=== PATIENT | male | born 1975 | race Two or more races ===

== ENCOUNTER → 2021-11-08 14:52 | Outpatient (BNVA) | payer MEDICARE, MEDICAID, SELFPAY | PROVIDERS: PCP Family Medicine; Visit Provider Nurse Practitioner Family | DX: M96.1 Postlaminectomy syndrome, not elsewhere classified (principal); M54.16 Radiculopathy, lumbar region; G57.93 Unspecified mononeuropathy of bilateral lower limbs; G89.4 Chronic pain syndrome | CPT/HCPCS: 99202 ==

== ENCOUNTER → 2021-11-18 08:19 | Outpatient (BNVA) | payer MEDICARE, MEDICAID, SELFPAY | PROVIDERS: PCP Family Medicine; Visit Provider Nurse Practitioner Family | DX: M96.1 Postlaminectomy syndrome, not elsewhere classified (principal); M54.16 Radiculopathy, lumbar region; M53.3 Sacrococcygeal disorders, not elsewhere classified | CPT/HCPCS: 99212 ==

== ENCOUNTER 2022-06-29 10:03 | Outpatient (REF) | payer MEDICARE, MEDICAID, SELFPAY ==
--- NOTE | ~2022-06-29 | MR_ITS ---
EXAMINATION: MR LUMBAR SPINE WITHOUT AND WITH CONTRAST CLINICAL INFORMATION: Low back pain. History of prior surgeries. COMPARISON: None. TECHNIQUE: Multiplanar, multisequence imaging was obtained. Intravenous contrast: Gadavist 8.5 mL. FINDINGS: VERTEBRAL BODIES AND PARASPINAL STRUCTURES: The patient is status post previous posterior lumbar fusion with hardware instrumentation from the L4 through the S1 levels. An interbody prosthesis is also visible laterally on the left side in the L4-L5 disc space. Chronic postlaminectomy changes are present as well. The imaged bony pelvis appears normal. There are no compression fractures or subluxations. The marrow signal is homogeneous. Reduced intradiscal signal evident at the L3-L4 level without a loss of disc height. There is a mild rightward curvature of the lumbar spine. The paraspinal soft tissues are unremarkable CONUS MEDULLARIS AND CAUDA EQUINE: The distal cord, conus tip, and cauda equina nerve roots are normal. No pathologic enhancement is visible. SPINAL LEVELS: L1-L2: Well-hydrated normal appearance of the disc without central canal stenosis or foraminal narrowing. Mild facet arthropathy. L2-L3: Very mild disc bulge and mild to moderate facet arthropathy resulting in mild asymmetric narrowing of the left subarticular zone. Mild left foraminal narrowing as well. L3-L4: Reduced intradiscal signal and generalized disc bulge present with moderate facet arthropathy. Mild central canal stenosis evident. Bulging disc and osseous spurring result in moderate to severe bilateral foraminal narrowing. L4-L5: Postlaminectomy changes and hypertrophic facet arthropathy with fusion hardware in place. Moderate bilateral foraminal narrowing due to ossific spurring. Generalized underlying disc bulge noted. L5-S1: No disc pathology. Mild facet arthropathy. No central canal stenosis or foraminal narrowing. Posterior fusion hardware in place. MR/MR lumbar spine wo/w con IMPRESSION: 1. Status post posterior lumbar fusion with hardware instrumentation from the L4 through the S1 levels with an interbody prosthesis at the L4-L5 level. Moderate bilateral foraminal narrowing at the L4-L5 level. 2. Diffuse disc bulge and hypertrophic facet arthropathy at the L3-L4 junctional level with mild central canal stenosis and moderate to severe foraminal narrowing.
== END 2022-06-29 10:04 | disposition home or self-care (01) ==
LOC: HO.MRI 10:03
PROVIDERS: PCP Family Medicine; Visit Provider Family Medicine
DX: M54.16 Radiculopathy, lumbar region (principal); R20.0 Anesthesia of skin
CPT/HCPCS: 72158; A9585

== ENCOUNTER 2023-01-15 13:33 | Outpatient (REF) | payer MEDICARE, MEDICAID, SELFPAY ==
[2023-01-15 14:41] LABS: MANUAL DIFF FLAG NO
[2023-01-15 14:45] LABS: Basophils Percent Auto 0.4 % (0-2); Eosinophils Absolute Auto 0.3 X10*3/uL (0.0-0.4); Hematocrit 41.4 % (42.0-52.0); Hemoglobin 13.1 g/dl (14.0-18.0); Imm Gran Abs Auto 0.01 X10*3/uL (0.00-0.03); Imm Gran Pct Auto 0.2 % (0.0-0.4); Lymphocytes Absolute Auto 1.4 X10*3/uL (1.2-4.9); Lymphocytes Percent Auto 25.9 % (20-40); Mean Corpuscular HGB Conc 31.6 g/dl (31.0-36.0); Mean Corpuscular Hemoglobin 26.6 pg (27.0-33.0); Mean Platelet Volume 11.6 fL (9.4-12.4); Monocytes Absolute Auto 0.5 X10*3/uL (0.1-1.2); Monocytes Percent Auto 8.4 % (2-11); Neutrophils Absolute Auto 3.2 x10*3/uL (2.0-8.3); Neutrophils Percent Auto 59.1 % (45-73); Platelet Count 194 X10*3/uL (160-400); Red Blood Count 4.93 X10*6/uL (4.60-5.80); Red Cell Distribution Width 13.5 % (11.0-16.0); White Blood Count 5.4 X10*3/uL (4.8-10.8)
[2023-01-15 15:37] LABS: Alanine Aminotransferase 15 U/L (0-40); Albumin Level 4.4 g/dL (3.5-5.0); Alkaline Phosphatase 60 U/L (39-117); Anion Gap 10 (12-20); Aspartate Amino Transferase 17 U/L (5-37); Bilirubin Total 0.7 mg/dL (0.0-1.0); Blood Urea Nitrogen 15 mg/dL (9-16); Calcium 9.4 mg/dL (8.4-10.2); Carbon Dioxide 30 mmol/L (22-29); Chloride 105 mmol/L (96-108); Cholesterol 155 mg/dL (<200); Estimated Glomerular Filt Rate > 60; Glucose Random 92 mg/dL (60-115); HDL Cholesterol 27 mg/dL (>40); LDL Cholesterol Calculated 101 mg/dL (<100); Potassium 3.9 mmol/L (3.3-5.1); Sodium 141 mmol/L (135-145); Total Protein 7.3 g/dL (6.5-8.0); Triglycerides 139 mg/dL (<150)
[2023-01-16 04:23] LABS: HIV AB/AG Nonreactive (Nonreactive); HIV Num 1 0.05 S/CO (0.00-0.99); ~Hepatitis C Antibody Nonreactive (Nonreactive)
== END 2023-01-15 13:34 | disposition home or self-care (01) ==
LOC: HO.CHCLDS 13:33
PROVIDERS: Visit Provider Family Medicine
DX: Z11.4 Encounter for screening for human immunodeficiency virus [HIV] (principal); E78.5 Hyperlipidemia, unspecified
CPT/HCPCS: 36415; 80053; 80061; 85025; 86803; 87389

== ENCOUNTER 2024-04-15 11:20 | Outpatient (REF) | payer OTHER, SELFPAY ==
--- OUTSIDE RECORDS SUMMARY | 2024-04-15 12:35 | XMS_ITS | Encounter Summary ---
Author Organization [employer] Address [address] [place] [address] 7 [place] [address] Care Team Providers Care Director Emergency Department Name Role Phone Catherine Lee MD Primary Care Provider [phone] Reason for Visit * Reason Onset Date Comments medical question 04/08/2024 Encounter Details Date Type Department Care Team ([facility] st Contact Info) Description 04/08/2024 Telephone [facility] [address] [place] [address] Catherine Lee MD [address] [place] [phone] medical question Social History Tobacco Use Types Packs/Day Years Used Date Smoking Tobacco: Never Passive Smoke Exposure: Never Smokeless Tobacco: Never Alcohol Use Standard Drinks/Week Comments Never 0 (1 standard drink = 0.6 oz pur e alcohol) Sex and Gender Information Value Date Recorded Sex Assigned at Male 12/26/2021 10:40 AM EDT Legal Sex Male 10:40 AM EDT Gender Identity Male 12/26/2021 10:40 AM EDT Sexual Orientation Straight 12/26/2021 10 :40 AM EDT documented as of this encounter Miscellaneous Notes * Telephone Encounter - Suzanna Zambrano RN - 04/08/2024 2:22 PM EST TC placed to pt via [facility] clinical assessment manager (Rajendra ID#[id number]) regarding prostate exam. Pt denies any current symptoms. Pt looking to have a prostate exam. Pt booked for appointment with Dr. De Dios on 04/15 at 10:45 AM. * Telephone Encounter - Rolf Deyarez - 04/08/2024 1:49 PM EST TC from pt unsure if he needs to get scheduled for a prostate exam documented in this encounter Plan of Treatment Upcoming Encounters Date Type Department Care Team (Late st Contact Info) Description 05/13/2024 1:00 PM EDT Clinical Support [facility] MED & PEDS [address] [place] [address] documented as of this encounter Visit Diagnoses Not on filedocumented in this encounter Care Teams Director Emergency Department Relationship Specialty Start Date End Date Catherine Lee MD [address] [place] [phone] PCP - General Family Medicine 09/23/21 documented as of this encounter
--- OUTSIDE RECORDS SUMMARY | 2024-04-15 12:35 | XMS_ITS | Encounter Summary ---
Author Organization [employer] Address [address] [facility] [address] [place] [address] Care Team Providers Care Concrete Crusher Loader Operator Name Role Phone Catherine Lee MD Primary Care Provider [phone] Encounter Details Date Type Department Care Team (Latest Contact Info) Description 04/15/2024 Travel Social History Tobacco Use Types Packs/Day Years Used Date Smoking Tobacco: Never Passive Smoke Exposure: Never Smokeless Tobacco: Never Alcohol Use Standard Drinks/Week Comments Never 0 (1 standard drink = 0.6 oz pur e alcohol) Housing Stability Answer Date Recorded What is your housing situation today? I have laura kitty 04/15/[address] you li ve. Do you have problems with any of the following? None of the above 04/15/2024 Food Insecurity Answer Date Recorded Within the past 12 months, y ou worried that your food would run out before you got money to buy more: Never True 04/15/2024 Within the past 12 months,th e food you bought just didn't last and you didn't have enough money to get more: Never True Transportation Answer Date Recorded In the past 12 months, has l ack of transportation kept you from medical appts, meetings, work or from getting things needed for daily living? No 04/15/2024 Utilities Answer Date Recorded In the past 12 months, has t he electric, gas, oil or water company threatened to shut off services in your home? No 04/15/2024 Internet Access Answer Date Recorded Internet Access Q1 Yes 04/15/2024 Internet Access Q2 Not on file 04/15/2024 Sex and Gender Information Value Date Recorded Sex Assigned at Male 12/26/2021 10:40 AM EDT Legal Sex Male 10:40 AM EDT Gender Identity Male 12/26/2021 10:40 AM EDT Sexual Orientation Straight 12/26/2021 10 :40 AM EDT documented as of this encounter Plan of Treatment Upcoming Encounters Date Type Department Care Team (Late st Contact Info) Description 05/13/2024 1:00 PM EDT Clinical Support [facility] MED & PEDS [address] [place] [address] documented as of this encounter Visit Diagnoses Not on filedocumented in this encounter Care Teams Concrete Crusher Loader Operator Relationship Specialty Start Date End Date Catherine Lee MD [address] [place] [address] PCP - General Family Medicine 09/23/21 documented as of this encounter
--- OUTSIDE RECORDS SUMMARY | 2024-04-15 12:35 | XMS_ITS | Clinical Summary ---
Author Organization [employer] Address [address] [place] [address] 7 [place] [address] Care Team Providers Care Green Chain Worker Name Role Phone Catherine Lee MD Primary Care Provider [phone] Allergies No known active allergies Medications pantoprazole (Protonix) 40 MG EC tablet TAKE 1 TABLET BY MOUTH BEFORE BREAKFAST. DO NOT CRUSH, CHEW, OR SPLIT. 90 tablet 1 09/21/2023 Active ibuprofen 800 MG tabletIndicatio ns:HNP (herniated nucleus pulposus), lumbar TAKE 1 TABLET BY MOUTH THREE TIMES A DAY IF NEEDED FOR MODERATE PAIN. TAKE WITH FOOD. 60 tablet 12/31/2023 Active oxyCODONE-aceta minophen (Percocet) 5-325 MG tabletIndicatio ns:HNP (herniated nucleus pulposus), lumbar Take 1 tablet by mouth if needed in the morning, at noon, and at bedtime for severe pain. 15 tablet 12/31/2023 Active Active Problems Problem Noted Date Diagnosed Date Requires daily assistance fo r activities of daily living (ADL) and comfort needs 01/15/2023 Encounter for health-related screening Assessment & Plan (01/15/2023 1:17 PM EST): -Labs: Hep.C, HIV-1/2. Saddle anesthesia 04/13/2022 Unstable gait 04/13/2022 Hyperlipidemia 04/13/2022 Assessment & Plan (01/15/2023 1:18 PM EST): -Labs: CBC, C. Met. Panel, Lipid Panel. Lumbar radiculopathy 11/02/2020 Assessment & Plan (04/21/2022 10:03 AM EST): Patient has a hx of 2 prior surgeries in [place], he had L4/L5 Decompression w/ Dr. Whelan 07/19/2018 sp lifting injury at work, L4/L5 11/02/20 disk herniation. He was seen around 6 months ago as a new patient here and never followed up after that. Chronic postoperative pain 10/28/2019 Overview (04/13/2022): Last Assessment & Plan: Patient with history of decompressive L4-L5 laminectomy and discectomy June 2018 [facility]. Patient reports completing full course of physical therapy postoperatively and since that time has never fully recovered to where he experiences 1 day without pain. Patient now has increased difficulty walking, chronic LE pain and sensation loss over bilateral aspects of thigh extending into dorsal aspect of feet. It appears patient has not followed up with his neurosurgeon or other pain specialist given frustration with lack of medical recovery following surgery. I discussed with him and his girlfriend, who accompanied him today, that we should repeat MRI of lumbar region given it is been over 1 year since his surgery and he continues to have pain. Furthermore will provide prescription for diclofenac 75 twice daily with instructions to take with food only. Lidocaine patches topically prescribed. Referral sent to pain management for evaluation. No urinary or bladder changes, but has been followed by urology postoperatively for retention. No saddle anesthesia at this time. 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 Testicular lump 06/10/2019 Overview (04/13/2022): Last Assessment & Plan: Patient noticed 3 weeks ago. No injury or trauma. Painful at times. Unable to find the area of concern today. However, will check scrotal US to further assess and notify with results. Retention of urine 07/31/2018 Overview (04/13/2022): Last Assessment & Plan: He is voiding well. No incontinence. Stream is still slow, but he feels empty after voiding. UA negative. PVR 1cc. We agreed to follow conservatively. All questions answered. Patient verbalizes understanding and is in agreement with this plan. Lumbar disc herniation 07/29/2018 Overview (04/13/2022): Massive disc herniation L/4-L/5 s/p laminectomy and discectomy Last Assessment & Plan: Patient symptoms seem to be progressively/worsening from when last seen in the office approximately 2 months prior. Since that time has had follow-up with pain management and neurosurgery for initial consultation. Seems there has been issues in terms of insurance approving injection. Was instructed to complete EMG by neurosurgery -unclear why this has not been completed to date. I will plan to reach out to neurosurgery department to ensure follow-up is planned given symptoms seem to be worsening and will likely need surgical intervention in the near future. HNP (herniated nucleus pulposus), lumbar 019 Assessment & Plan (01/15/2023 1:19 PM EST): Patient still presents visit with complaints of lumbar pain. Therefore, patient will have a medication refill: Oxycodone and Ibuprofen. Acute back pain with sciatica, right 07/19/2018 Encounters Date Type Department Care Team Description 04/15/2024 10:45 AM EST Office Visit [facility] [address] [place] [address] Aimee De Dios MD Prostate cancer screening (Primary Dx); Encounter for immunization 04/15/2024 Travel 04/08/2024 Telephone [facility] [address] [place] [address] Catherine Lee MD medical question from Last 3 Months Immunizations Name Administration Dates Next Due Hep B, adult 04/15/2024 Tdap 01/15/2023 Social History Tobacco Use Types Packs/Day Years Used Date Smoking Tobacco: Never Passive Smoke Exposure: Never Smokeless Tobacco: Never Tobacco Cessation:Counseling Given: Not Answered Alcohol Use Standard Drinks/Week Comments Never 0 (1 standard drink = 0.6 oz pur e alcohol) Housing Stability Answer Date Recorded What is your housing situation today? I have laura tang 04/15/[address] you li [...] Orientation Straight 12/26/2021 10 :40 AM EDT Last Filed Vital Signs Vital Sign Reading Time Taken Comments Blood Pressure 121/68 04/15/2024 10:55 AM EST Pulse 65 04/15/2024 10:55 AM EST Temperature 36.1 ??C (97 ??F) 04/15/2024 10:55 AM EST Respiratory Rate 20 04/15/2024 10:55 AM EST Oxygen Saturation 97% 04/15/2024 10:55 AM EST Inhaled Oxygen Concentration - - Weight 78.9 kg (174 lb) 04/15/2024 10:55 AM EST Height 186.6 cm (6' 1.48 ) 04/15/2024 10:[address] Body Mass Index 22.66 04/15/2024 10:55 AM EST Plan of Treatment Upcoming Encounters Date Type Department Care Team (Late st Contact Info) Description 05/13/2024 1:00 PM EDT Clinical Support [facility] [address] [place] [address] Health Maintenance Due Date Last Done Comments CT Colonography 1976 Colonoscopy 1976 Depression Screening 1976 FIT 1976 FOBT 1976 Sigmoidoscopy 1976 Family Planning (PISQ) 12/23/1991 COVID-19 Vaccine (3 - 2023-2 5 season) 2023 07/28/2020, 07/07/2020 Influenza Vaccine (#1) 2023 Tobacco Screening 01/16/2024 01/15/2023 Hepatitis B Vaccines (2 of 3 - 19+ 3-dose series) 05/13/2024 04/15/2024 Alcohol/Substance Use Screening 04/15/2025 04/15/2024 SDOH Screening 04/15/2025 04/15/2024 Colorectal Cancer Screening 01/30/2026 FIT DNA/Cologuard 01/30/2026 01/30/2023 Zoster Vaccines (1 of 2) 2026 Lipid Panel 01/16/2028 01/15/2023, 04/19/2022, 09/26/2021 DTaP/Tdap/Td Vaccines (2 - T d or Tdap) 01/15/2033 01/15/2023 RSV Patients and Patients Aged 60 years or older (1 - 1-dose 75+ series) 12/23/2051 HIV Screening Completed 01/15/2023 Hepatitis C Screening Completed 01/15/2023 HIB Vaccines Aged Out No longer eligi ble based on patient's age to complete this topic HPV Vaccines Aged Out No longer eligi ble based on patient's age to complete this topic Hepatitis A Vaccines Aged Out No long er eligible based on patient's age to complete this topic IPV Vaccines Aged Out No longer eligi ble based on patient's age to complete this topic Meningococcal Vaccine Aged Out No benjamin yoli eligible based on patient's age to complete this topic Pneumococcal Vaccine: Pediatrics (0 to 5 Years) and At-Risk Patients (6 to 49) Years) Aged Out No longer eligible b ased on patient's age to complete this topic RSV under 20 months Aged Out No longe r eligible based on patient's age to complete this topic Rotavirus Vaccines Aged Out No longer eligible based on patient's age to complete this topic Procedures Procedure Name Priority Date/Time Associated Diagnosis Comments LAB COLOGUARD?? COLON CANCER SCREEN Routine 01/30/2023 5:12 PM EST Colon cancer screening HEPATITIS C ANTIBODY Routine 01/15/2023 1:37 PM EST Encounter for health-related screening HIV 1/2 ANTIGEN/ANTIBODY, FOURTH GENERATION W/RFL Routine 01/15/2023 1:37 PM EST Encounter for health-related screening LIPID PANEL, STANDARD Routine 01/15/2023 1:37 PM EST Hyperlipidemia, unspecified hyperlipidemia type from Last 3 Months or Most Recently Relevant to Health Maintenance Results * Cologuard?? colon cancer screening (01/30/2023 5:12 PM EST) Cologuard Result Negative Negative 02/08/20 1:25 PM EST [facility] (CLIA #:[id number]) Comment: NEGATIVE TEST RESULT. A negative Cologuard result indicates a low likelihood that a colorectal cancer (CRC) or advanced adenoma (adenomatous polyps with more advanced pre-malignant features) ??is present. The chance that a person with a negative Cologuard test has a colorectal cancer is less than 1 in 1500 (negative predictive value >99.9%) or has an ??advanced adenoma is less than ??5.3% (negative predictive value 94.7%). These data are based on a prospective cross-sectional study of 10,000 individuals at average risk for colorectal cancer who were screened with both Cologuard and colonoscopy. (Abhilash Castle al, N Engl J Med 2014;370(14):1286- 1297) The normal value (reference range) for this assay is negative. COLOGUARD RE-SCREENING RECOMMENDATION: Periodic colorectal cancer screening is an important part of preventive healthcare for asymptomatic individuals at average risk for colorectal cancer. ??Following a negative Cologuard result, the [place] [employer] Society and U.S. Multi-Society Task Force screening guidelines recommend a Cologuard re-screening interval of 3 years. References: [place] [employer] Guideline for Colorectal Cancer Screening: https://www.cancer.org/cancer/irwfb-mwtyhq-gspztu/pwsvftpkq-sfbgmgkyn-nfhavtw/ac s-rec ommendations.html.; Sharad NAJERA, Janay ZUNIGA, Gerson LYLES, Colorectal Cancer Screening: Recommendations for Physicians and Patients from the U.S. Multi-Society Task Force on Colorectal Cancer Screening , Am J Gastroenterology 2017; 112:8517-6244. TEST DESCRIPTION: Composite algorithmic analysis of stool DNA-biomarkers with hemoglobin immunoassay. ?? Quantitative values of individual biomarkers are not reportable and are not associated with individual biomarker result reference ranges. Cologuard is intended for colorectal cancer screening of adults of either sex, 45 years or older, who are at average-risk for colorectal cancer (CRC). Cologuard has been approved for use by the U.S. FDA. The performance of Cologuard was established in a cross sectional study of average-risk adults aged 50-84. Cologuard performance in patients ages 45 to 49 years was estimated by sub-group analysis of near-age groups. Colonoscopies performed for a positive result may find as the most clinically significant lesion: colorectal cancer [4.0%], advanced adenoma (including sessile serrated polyps greater than or equal to 1cm diameter) [20%] or non- advanced adenoma [31%]; or no colorectal neoplasia [45%]. These estimates are derived from a prospective cross-sectional screening study of 10,000 individuals at average risk for colorectal cancer who were screened with both Cologuard and colonoscopy. (Abhilash Huynh. et al, N Engl J Med 2014;370(14):9962-4148.) Cologuard may produce a false negative or false positive result (no colorectal cancer or precancerous polyp present at colonoscopy follow up). A negative Cologuard test result does not guarantee the absence of CRC or advanced adenoma (pre-cancer). The current Cologuard screening interval is every 3 years. ([place] [employer] and U.S. Multi-Society Task Force). Cologuard performance data in a 10,000 patient pivotal study using colonoscopy as the reference method can be accessed at the following location: www.[employer]/results. Additional description of the Cologuard test process, warnings and precautions can be found at www.cologuard.com. Stool specimen (specimen) 01/30/2023 5:12 PM EST 02/01/2023 7:01 PM EST Catherine Lee MD LAB MOLECULAR DIAGNOSTICS ORD ERABLES Final Result [facility] (CLIA #:[id number]) [address] [place] [address], * Hepatitis C Ab (01/15/2023 1:37 PM EST) Hepatitis C Antibody Nonreactive Nonreactive [facility] Comment:Antibodies to HCV no t detected; does not exclude early acuteHCV infection. Blood Venous blood specimen / Unknown 01/15/2023 1:37 PM EST 01/15/2023 2:37 PM EST Catherine Lee MD LAB BLOOD ORDERABLES Final Re sult Performing Organization Address [facility]/ZIP Co de Phone Number [facility] [address] [place] [phone] * HIV-1/2 Antigen and Antibodies, Fourth Generation, with Reflexes (01/15/2023 1:37 PM EST) HIV AB/AG Nonreactive Nonreactive [facility] Comment:HIV-1 p24 Ag and/or HIV-1/HIV-2 Ab not detected.A test result that is nonreactive does not exclude thepossibility of exposure to or infection with HIV-1 and/orHIV-2. Nonreactive results in this assay for individualswith prior exposure to HIV-1 and/or HIV-2 may be due toantigen and antibody levels that are below the limit ofdetection of this assay.The [employer] HIV Ag/Ab Combo assay result andsupplemental assay results should be interpreted inconjunction with the patient's clinical presentation,history and other laboratory results. If the results areinconsistent with clinical evidence, additional testing issuggested to confirm the result. Blood Venous blood specimen / Unknown 01/15/2023 1:37 PM EST 01/15/2023 2:37 PM EST us Catherine Lee MD LAB BLOOD ORDERABLES Final Re sult Performing Organization Address [facility] Co de Phone Number [facility] [address] [place] [address] [phone] * (ABNORMAL) Lipid Panel, Standard (01/15/2023 1:37 PM EST) Triglycerides 139 <150 mg/dL [facility] Comment:Desirable Triglyceri de: less than 150 mg/dLBorderline High Triglyceride 150-199 mg/dLHigh Triglyceride: 200-499 mg/dLVery High Triglyceride: greater than or equal to 5OO mg/dL Cholesterol 155 <200 mg/dL [facility] Comment:Desirable Cholestero l: less than 200 mg/dLBorderline High Cholesterol: 200-239 mg/dLHigh Cholesterol: greater than 239 mg/dL LDL Cholesterol Calculated 101(H) <100 mg/dL [facility] Comment:Desirable LDL: less than 100 mg/dLNear Optimal/Above Optimal LDL: 110- 129 mg/dLBorderline High LDL: 130-159 mg/dLHigh LDL: 160-189 mg/dLVery High LDL: greater than or equal to 190 mg/dL HDL Cholesterol 27(L) >40 mg/dL [facility] Comment:Desirable HDL: great er than 40 mg/dL Note: This HDL assay may give artificially low results in patients with liver disease. Blood Venous blood specimen / Unknown 01/15/2023 1:37 PM EST 01/15/2023 2:37 PM EST us Catherine Lee MD LAB BLOOD ORDERABLES Final Re sult Performing Organization Address [facility]/ZIP Co de Phone Number [facility] [address] [place] [address] [phone] from Last 3 Months or Most Recently Relevant to Health Maintenance [place] [address] [place] [address] - [employer] Care Teams Green Chain Worker Relationship Specialty Start Date End Date Catherine Lee MD [address] [place] [phone] PCP - General Family Medicine 09/23/21
--- OUTSIDE RECORDS SUMMARY | 2024-04-15 12:35 | XMS_ITS | Encounter Summary ---
Author Organization [employer] Address [address] [facility] [address] [place] [address] Care Team Providers Care Exploration Engineer Name Role Phone Catherine Lee MD Primary Care Provider [phone] Encounter Details Date Type Department Care Team ([facility] st Contact Info) Description 04/15/2024 10:45 AM EST Office Visit [facility] [address] [place], [place] [id number] Aimee De Dios MD [address] [place] [address] Prostate cancer screening (Primary Dx); Encounter for immunization Social History Tobacco Use Types Packs/Day Years Used Date Smoking Tobacco: Never Passive Smoke Exposure: Never Smokeless Tobacco: Never Alcohol Use Standard Drinks/Week Comments Never 0 (1 standard drink = 0.6 oz pur e alcohol) Housing Stability Answer Date Recorded What is your housing situation today? I have laura sing 04/15/[address] you li [...] AM EDT documented as of this encounter Last Filed Vital Signs Vital Sign Reading [...] Mass Index 22.66 04/15/2024 10:55 AM EST documented in this encounter Progress Notes * Aimee De Dios MD - 04/15/2024 10:45 AM EST Subjective Patient ID: Sha Boggs is a 48 y.o. male who presents for No chief complaint on file.. Pt is here requesting blood work to check prostarte No symptoms reported Review of Systems Constitutional: Negative. Respiratory: Negative. Cardiovascular: Negative. Gastrointestinal: Negative. Genitourinary: Negative. Objective Physical Exam Constitutional: Appearance: Normal appearance. Cardiovascular: Rate and Rhythm: Normal rate and regular rhythm. Pulmonary: Effort: Pulmonary effort is normal. Breath sounds: Normal breath sounds. Neurological: General: No focal deficit present. Mental Status: He is alert. Psychiatric: Mood and Affect: Mood normal. Behavior: Behavior normal. Assessment/Plan Diagnoses and all orders for this visit: Prostate cancer screening Comments: Labs ordered today Orders: - PSA, Total With Reflex to PSA, Free; Future Encounter for immunization - HEPATITIS B VACCINE ADULT 20 yrs + documented in this encounter Plan of Treatment Upcoming Encounters Date Type Department Care Team (Late st Contact Info) Description 05/13/2024 1:00 PM EDT Clinical Support [facility] [address] [place] [address] Scheduled Orders Name Type Priority Associated Diagnoses Orde r Schedule PSA, Total With Reflex to PSA, Free Lab Routine Prostate cancer screening Expected: 04/15/2024 (Approximate), Expires: 04/15/2025 documented as of this encounter Visit Diagnoses Diagnosis Prostate cancer screening- Primary Special screening for malignant neoplasm of prostate Encounter for immunization documented in this encounter Care Teams Exploration Engineer Relationship Specialty Start Date End Date Catherine Lee MD [address] [place] [id number] PCP - General Family Medicine 09/23/21 documented as of this encounter
== END 2024-04-15 11:21 | disposition home or self-care (01) ==
LOC: HO.CHCLDS 11:20
PROVIDERS: Visit Provider Student in an Organized Health Care Education/Training Program
DX: Z12.5 Encounter for screening for malignant neoplasm of prostate (principal)
CPT/HCPCS: 36415; 84153

== ENCOUNTER 2025-01-29 08:39 | Outpatient (REF) | payer OTHER, SELFPAY ==
--- OUTSIDE RECORDS SUMMARY | 2025-01-28 15:30 | XMS_ITS | Encounter Summary ---
Author Organization [employer] Address [address] [place] [address] [address] [place] [address] Care Team Providers Care Senior Ux Designer Name Role Phone Catherine Lee MD Primary Care Provider [phone] Reason for Visit * Reason Comments Follow-up Encounter Details Date Type Department Care Team ([facility] st Contact Info) Description 01/28/2025 3:30 PM EST Office Visit [facility] [address] [place] [address] Catherine Lee MD [address] [place] [address] Encounter for health-related screening (Primary Dx); Encounter for immunization; Atrophy of muscle of left lower leg Social History Tobacco Use Types Packs/Day Years Used Date Smoking Tobacco: Never Passive Smoke Exposure: Never Smokeless Tobacco: Never Alcohol Use Standard Drinks/Week Comments Never 0 (1 standard drink = 0.6 oz pur e alcohol) Depression Answer Date Recorded Patient Health Questionnaire-9 Score 2 01/28/2025 Patient Health Questionnaire-9 Score 2 01/28/2025 Last PHQ-9: Questionnaire Data Not on file 1 03/31/2024 Housing Stability Answer Date Recorded What is [...] off services in your home? No 04/15/2024 Depression Answer Date Recorded Patient Health Questionnaire-2 Score 0 01/28/2025 Internet Access Answer Date Recorded Internet Access [...] Sign Reading Time Taken Comments Blood Pressure 120/76 01/28/2025 3:10 PM EST Pulse 64 01/28/2025 3:10 PM EST Temperature 36.3 C (97.4 F) 01/28/2025 3:10 PM EST Respiratory Rate 20 01/28/2025 3:10 PM EST Oxygen Saturation 99% 01/28/2025 3:10 PM EST Inhaled Oxygen Concentration - - Weight 79.7 kg (175 lb 12.8 oz) 01/28/2025 3:10 PM EST Height 186 cm (6' 1.23 ) 01/28/2025 3:10 PM EST Body Mass Index 23.05 01/28/2025 3:10 PM EST documented in this encounter Functional Status * Over the past 2 weeks, how often have you been bothered by any of the following problems? Question Answer Date of Assessment Author Patient Health Questionnaire-2 Score 0 04/2024 3:10 PM EST Leigh Fan MA * Little interest or pleasure in doing things Answer Date of Assessment Author Not at all 01/28/2025 3:10 PM EST Leigh Fan MA * Feeling down, depressed, or hopeless Answer Date of Assessment Author Not at all 01/28/2025 3:10 PM Leigh Patel MA * Trouble falling or staying asleep, or sleeping too much Answer Date of Assessment Author Several days 01/28/2025 3:10 PM Leigh Patel MA * Feeling tired or having little energy Answer Date of Assessment Author Several days 01/28/2025 3:10 PM Leigh Patel MA * Poor appetite or overeating Answer Date of Assessment Author Not at all 01/28/2025 3:10 PM Leigh Patel MA * Feeling bad about yourself - or that you are a failure or have let yourself or your family down Answer Date of Assessment Author Not at all 01/28/2025 3:10 PM Leigh Patel MA * Trouble concentrating on things, such as reading the newspaper or watching television Answer Date of Assessment Author Not at all 01/28/2025 3:10 PM Leigh Patel MA * Moving or speaking so slowly that other people could have noticed? Or the opposite - being so fidgety or restless that you have been moving around a lot more than usual. Answer Date of Assessment Author Not at all 01/28/2025 3:10 PM Leigh Patel MA * Thoughts that you would be better off or hurting yourself in some way Answer Date of Assessment Author Not at all 01/28/2025 3:10 PM Leigh Patel MA * Patient Health Questionnaire-9 Score Answer Date of Assessment Author 2 01/28/2025 3:10 PM Leigh Patel MA * How difficult have these problems made it for you to do your work, take care of things at home, or get along with other people? Answer Date of Assessment Author Not difficult at all 01/28/2025 3:10 PM EST Leigh Falk MA documented as of this encounter Progress Notes * Catherine Lee MD - 01/28/2025 3:30 PM EST Images from the original note were not included. Subjective Patient ID: Sha Boggs is a 49 y.o. male who presents for Follow-up. Sha Boggs presents for follow-up of chronic back pain and muscle wasting. The patient reports ongoing back pain for which he was referred to a neurosurgeon approximately 2-3 years ago. The neurosurgeon recommended surgery involving placement of a machine, but the patient declined this intervention due to fear that it would make him worse. He also received a temporary injection that provided only brief relief and did not pursue further follow-up with the neurosurgeon. Physical therapy was recommended but the patient avoided it because it makes him more tired. The patient has developed noticeable muscle wasting, particularly on the left side of his leg, which he attributes to lack of movement and avoiding weight- bearing on that side due to chronic pain. Heacknowledges there is a significant difference in muscle mass between his legs. The muscle wasting appears to be contributing to worsening back pain due to poor support. The patient expresses frustration about his condition and mentions he has not had adequate muscle mass for a long time. Since his last visit, the patient has not pursued recommended treatments including physical therapyor specialist follow-up. His last laboratory work was completed approximately 2 years ago. He declined influenza and COVID-19 vaccinations during this visit. Medical History - Chronic back pain with history of neurosurgical evaluation approximately 2-3 years ago - Muscle wasting in the left leg, likely secondary to chronic pain and weight avoidance Surgical History - Previous surgery approximately 2-3 years ago (neurosurgeon recommended additional surgery with placement of a device for pain management, but patient declined due to fear of complications) Medications and Supplements - Protonix - Ibuprofen Social History - Exercise: Patient reports that physical therapy makes him more tired and has avoided physical therapy recommendations Immunizations - Influenza: Patient declined flu vaccine when offered during visit - COVID-19: Patient declined COVID-19 vaccine when offered during visit Review of Systems General: Positive for fatigue. Musculoskeletal: Positive for chronic back pain. Review of Systems Objective BP 120/76 Pulse 64 Temp 97.4 ??F (36.3 ??C) (Oral) Resp 20 Ht 6' 1.23 (1.86 m) Wt 175 lb12.8 oz (79.7 kg) SpO2 99% BMI 23.05 kg/m?? Physical Exam Constitutional: General: He is not in acute distress. Appearance: He is not ill-appearing. HENT: Head: Normocephalic and atraumatic. Nose: No congestion. Pulmonary: Effort: Pulmonary effort is normal. No respiratory distress. Breath sounds: Normal breath sounds. Musculoskeletal: Cervical back: Normal range of motion. Legs: Comments: Left leg thinner than right Neurological: General: No focal deficit present. Mental Status: He is alert. Psychiatric: Mood and Affect: Mood normal. Assessment/Plan Problem List Items Addressed This Visit Encounter for health-related screening - Primary Relevant Orders CBC auto differential Comprehensive Metabolic Panel Lipid Panel, Standard TSH W/Reflex to FT4 PSA, Total With Reflex to PSA, Free Atrophy of muscle of left lower leg Other Visit Diagnoses Encounter for immunization Relevant Orders HEPLISAV-B VACCINE ADULT 19 yrs + (Completed) Sha Boggs presents with chronic back pain, muscle wasting in the left leg, and history of neurosurgical consultation 2-3 years ago. Chronic back pain Assessment: Patient has chronic back pain with history of neurosurgical consultation 2-3 years ago.Neurosurgeon recommended surgical intervention with device placement, but patient declined due to fear of complications. Patient also declined physical therapy, reporting it makes him more tired. Pain appears to be contributing to functional limitations and muscle disuse. Plan: - Discussed options for jewel bearing facer referral for comprehensive pain management - Patient to consider physical therapy for guided exercise program - Patient will notify clinician when he is ready to pursue treatment options Left leg muscle wasting Assessment: Physical examination reveals symmetrical muscle wasting with notable atrophy in the middle part of the left leg. Muscle wasting likely secondary to chronic pain and weight avoidance on the affected side, creating a cycle where decreased muscle support worsens back pain. Plan: - Recommend physical therapy for muscle strengthening with guided exercise program - Dietary counseling for adequate protein intake including meat, beans, and lentils to support muscle development - Patient to consider jewel bearing facer consultation for comprehensive rehabilitation approach Routine health maintenance Assessment: Laboratory results from 2 years ago showed normal prostate screening, negative colon cancer screening, normal hemoglobin, normal liver and kidney function, LDL cholesterol 101 mg/dL (acceptable), negative HIV and hepatitis B testing. Due to time elapsed since last screening, repeat laboratory evaluation is indicated. Plan: - Order comprehensive laboratory panel for routine health screening - Follow-up appointment scheduled in 3 months - Patient declined influenza and COVID-19 vaccinations documented in this encounter Plan of Treatment Scheduled Orders Name Type Priority Associated Diagnoses Orde r Schedule CBC auto differential Lab Routine Encounter for health-related screening Expected: 01/28/2025 (Approximate), Expires: 01/28/2026 Comprehensive Metabolic Panel Lab Routine Encounter for health-related screening Expected: 01/28/2025 (Approximate), Expires: 01/28/2026 Lipid Panel, Standard Lab Routine Encounter for health-related screening Expected: 01/28/2025 (Approximate), Expires: 01/28/2026 TSH W/Reflex to FT4 Lab Routine Encounter for health-related screening Expected: 01/28/2025 (Approximate), Expires: 01/28/2026 PSA, Total With Reflex to PSA, Free Lab Routine Encounter for health-related screening Expected: 01/28/2025 (Approximate), Expires: 01/28/2026 documented as of this encounter Visit Diagnoses Diagnosis Encounter for health-related screening- Primary Encounter for immunization 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
--- OUTSIDE RECORDS SUMMARY | 2025-01-29 09:23 | XMS_ITS | Clinical Summary ---
Author Organization [employer] Address [address] [place] [address] 7 [place] [address] Care Team Providers Care Mechanics Handyman Name Role Phone Catherine Lee MD Primary Care Provider [phone] Allergies No known active allergies Medications * This document contains information received from the source organization and may not represent a complete record from that organization. pantoprazole (Protonix) 40 MG EC tablet TAKE 1 TABLET BY MOUTH BEFORE BREAKFAST. DO NOT CRUSH, CHEW, OR SPLIT. 90 tablet 1 5 Active ibuprofen 800 MG tabletIndicatio ns:HNP (herniated nucleus pulposus), lumbar TAKE 1 TABLET BY MOUTH THREE TIMES A DAY IF NEEDED FOR MODERATE PAIN. TAKE WITH FOOD. 60 tablet 5 Active oxyCODONE-aceta minophen (Percocet) 5-325 MG tabletIndicatio ns:HNP (herniated nucleus pulposus), lumbar Take 1 tablet by mouth if needed in the morning, at noon, and at bedtime for severe pain. 15 tablet 5 01/29/20 25 Discontinu ed(Therapy completed) Active Problems Problem Noted Date Diagnosed Date Atrophy of muscle of left lower leg 01/28/2025 Requires daily assistance fo r activities of daily living (ADL) and comfort needs 01/15/2023 Encounter for health-related screening 3 Assessment & Plan (01/15/2023 1:17 PM EST): -Labs: Hep.C, HIV-1/2. Saddle anesthesia 04/13/2022 Unstable gait 04/13/2022 Hyperlipidemia 04/13/2022 Assessment & Plan (01/15/2023 1:18 PM EST): -Labs: CBC, C. Met. Panel, Lipid Panel. Lumbar radiculopathy 11/02/2020 Assessment & Plan (04/21/2022 10:03 AM EST): Patient has a hx of 2 prior surgeries in [place], he had L4/L5 Decompression w/ Dr. Whelan 07/19/2018 sp lifting injury at work, L4/L5 11/02/20 disk herniation. He was seen around 6 months ago as a new patient here and never followed up after that. Chronic postoperative pain 10/28/2019 Overview (04/13/2022): Last Assessment & Plan: Patient with history of decompressive L4-L5 laminectomy and discectomy June 2018 [facility]. Patient reports completing full course of physical [...] lower extremities originating from lumbar sacral region. Hx of decompressive lumbar laminectomy 0 Overview (01/28/2025): June 2018: L4-L5 decompressive laminectomy and discectomy (Dr. Tip Cisneros) Testicular lump 06/10/2019 Overview (04/13/2022): Last Assessment [...] back pain with sciatica, right 07/19/2018 Encounters * This document contains information received from the source organization and may not represent a complete record from that organization. Date Type Department Care Team Description 01/28/2025 3:30 PM EST Office Visit [facility] [address] [place] [address] Catherine Lee MD Encounter for health-related screening (Primary Dx); Encounter for immunization; Atrophy of muscle of left lower leg 01/28/2025 Travel 12/10/2024 5:40 PM EDT Office Visit [facility] [address] [place] [address] TobyLorna brownJOSE MIGUEL Weakness of left foot (Primary Dx); Numbness and tingling of both lower extremities 12/10/2024 Travel 12/10/2024 Telephone [facility] [address] [place] [address] Catherine Lee MD Nurse Triage from Last 3 Months Immunizations Immunization Administration Dates Next Due Hep B, adult 04/15/2024 HepB-CpG 01/28/2025 Tdap 01/15/2023 Social History Tobacco Use Types [...] Mass Index 23.05 01/28/2025 3:10 PM EST Plan of Treatment Health Maintenance Due Date Last Done Comments CT Colonography 1976 Colonoscopy 1976 FIT 1976 Sigmoidoscopy 1976 Disability Screening 1976 Family Planning (PISQ) 12/23/1991 FOBT 01/31/2024 01/30/2023 Hepatitis B Vaccines (3 of 3 - 19+ 3-dose series) 03/25/2025 01/28/2025, 04/15/2024 Influenza Vaccine (#1) 2025 Postp oned from 10/27/2024 (Patient Refused) Alcohol/Substance Use Screening 01/28/2026 01/28/2025 COVID-19 Vaccine (3 - 2024-2 6 season) 2026 07/28/2020, 07/07/2020 Postponed from 10/27/2024 (Patient Refused) Depression Screening 01/28/2026 01/28/2025, 01/28/2025 SDOH Screening 01/28/2026 01/28/2025 Tobacco Screening 01/28/2026 01/28/2025 Colorectal Cancer Screening 01/30/2026 FIT DNA/Cologuard 01/30/2026 [...] patient's age to complete this topic Meningococcal B Vaccine Aged Out No l onger eligible based on patient's age to complete this topic Meningococcal Vaccine Aged Out No benjamin yoli eligible based on patient's age to complete this topic Pneumococcal Vaccine: Pediatrics (0 to 5 Years) and At-Risk Patients (6 to 49) Years Aged Out No longer eligible b ased on patient's age to complete this topic RSV under 20 months Aged Out No longe r eligible based on patient's age to complete this topic Rotavirus Vaccines Aged Out No longer eligible based on patient's age to complete this topic Procedures Procedure Name Priority Date/Time Associated Diagnosis Comments LAB COLOGUARD COLON CANCER SCREEN Routine 01/30/2023 5:12 PM [...] Result Negative Negative 02/08/20 1:25 PM EST [facility] (CLIA #:[id number]) Comment: NEGATIVE TEST RESULT. A negative Cologuard result indicates a low likelihood that a colorectal cancer (CRC) or advanced adenoma (adenomatous polyps with more advanced pre-malignant features) is present. The chance that a person with a negative Cologuard test has a colorectal cancer is less than 1 in 1500 (negative predictive value >99.9%) or has an advanced adenoma is less than 5.3% (negative predictive value 94.7%). These data are based on a prospective cross-sectional study of 10,000 individuals at average risk for colorectal cancer who were screened with both Cologuard and colonoscopy. (Abhilash Beasley et al, N Engl J Med 2014;370(14):4685-4117) The normal value (reference range) for this assay is negative. COLOGUARD RE-SCREENING RECOMMENDATION: Periodic colorectal cancer screening is an important part of preventive healthcare for asymptomatic individuals at average risk for colorectal cancer. Following a negative Cologuard result, the [place] Cancer Society and U.S. Multi-Society Task Force screening guidelines recommend a Cologuard re-screening interval of 3 years. References: [place] [employer] Guideline for Colorectal Cancer Screening: https://www.cancer.org/cancer/ldvgu-mmmgaz-qeusye/dkalkhbpk-gyqvhwbxg-icfqmpu/ac s-rec ommendations.html.; Sharad NAJERA, Janay ZUNIGA, Gerson MehtaK, Colorectal Cancer Screening: Recommendations for Physicians and Patients from the U.S. Multi-Society Task Force on Colorectal Cancer Screening , Am J Gastroenterology 2017; 112:8235-1454. TEST DESCRIPTION: Composite algorithmic analysis of stool DNA-biomarkers with hemoglobin immunoassay. Quantitative values of individual biomarkers are not [...] Huynh. et al, N Engl J Med 2014;370(14):0028-6782.) Cologuard may produce a false negative or false positive result (no colorectal cancer or precancerous polyp present at colonoscopy follow up). A negative Cologuard test result does not guarantee the absence of CRC or advanced adenoma (pre-cancer). The current Cologuard screening interval is every 3 years. ([place] Cancer Society and U.S. Multi-Society Task Force). Cologuard performance data in a 10,000 patient pivotal study using colonoscopy as the reference method can be accessed at the following location: www.[employer]/results. Additional description of the Cologuard test process, warnings and precautions can be found at www.Ev[employer]og[employer]iDAQrd.com. Stool specimen (specimen) 01/30/2023 5:12 PM EST 02/01/2023 7:01 PM EST us Catherine Lee MD LAB MOLECULAR DIAGNOSTICS ORD ERABLES Final Result [facility] (CLIA #:[id number]) [address] [place] [address], * Hepatitis C Ab (01/15/2023 1:37 PM EST) Hepatitis C Antibody Nonreactive Nonreactive [facility] Comment:Antibodies to HCV no t detected; does not exclude early acuteHCV infection. Blood Venous blood specimen / Unknown 01/15/2023 1:37 PM EST 01/15/2023 2:37 PM EST Catherine Lee MD LAB BLOOD ORDERABLES Final Re sult Performing Organization Address [facility] Co de Phone Number [facility] [address] [place] [address] [phone] * HIV-1/2 Antigen and Antibodies, Fourth Generation, with Reflexes (01/15/2023 1:37 PM EST) HIV AB/AG Nonreactive Nonreactive [facility] Comment:HIV-1 p24 Ag and/or HIV-1/HIV-2 Ab not detected.A test result that is nonreactive does not exclude thepossibility of exposure to or infection with HIV-1 and/orHIV-2. Nonreactive results in this assay for individualswith prior exposure to HIV-1 and/or HIV-2 may be due toantigen and antibody levels that are below the limit ofdetection of this assay.The Tok3n HIV Ag/Ab Combo assay result andsupplemental assay results should be interpreted inconjunction with the patient's clinical presentation,history and other laboratory results. If the results areinconsistent with clinical evidence, additional testing issuggested to confirm the result. Blood Venous blood specimen / Unknown 01/15/2023 1:37 PM EST 01/15/2023 2:37 PM EST Catherine Lee MD LAB BLOOD ORDERABLES Final Re sult Performing Organization Address [facility]/ZIP Co de Phone Number [facility] [address] [place] [address] [phone] * (ABNORMAL) Lipid Panel, Standard (01/15/2023 1:37 PM EST) Triglycerides 139 <150 mg/dL [facility] Comment:Desirable Triglyceri de: less than 150 mg/dLBorderline High Triglyceride 150-199 mg/dLHigh Triglyceride: 200-499 mg/dLVery High Triglyceride: greater than or equal to 5OO mg/dL Cholesterol 155 <200 mg/dL [facility] Comment:Desirable Cholestero l: less than 200 mg/dLBorderline High Cholesterol: 200-239 mg/dLHigh Cholesterol: greater than 239 mg/dL LDL Cholesterol Calculated 101(H) <100 mg/dL [facility] Comment:Desirable LDL: less than 100 mg/dLNear Optimal/Above Optimal LDL: 110- 129 mg/dLBorderline High LDL: 130-159 mg/dLHigh LDL: 160-189 mg/dLVery High LDL: greater than or equal to 190 mg/dL HDL Cholesterol 27(L) >40 mg/dL [facility] Comment:Desirable HDL: great er than 40 mg/dL Note: This HDL assay may give artificially low results in patients with liver disease. Blood Venous blood specimen / Unknown 01/15/2023 1:37 PM EST 01/15/2023 2:37 PM EST us Catherine Lee MD LAB BLOOD ORDERABLES Final Re sult [facility] [address], [place] [phone] from Last 3 Months or Most Recently Relevant to Health Maintenance Insurance [employer] [id number] Care Teams Mechanics Handyman Relationship Specialty Start Date End Date Catherine Lee MD [address] [place] [phone] PCP - General Family Medicine 09/23/21
--- OUTSIDE RECORDS SUMMARY | 2025-01-29 09:24 | XMS_ITS | Encounter Summary ---
Author Organization [facility] [place] [address] [place] [address] Care Team Providers Care Certified Pesticide Applicator Name Role Phone Tamika Fontenot MD Primary Care Provider [phone] Encounter Details Date Type Department Care Team (Late st Contact Info) Description 12/07/2020 [place] [phone] Caty Mckeon MD [facility] [place] [address] Social History Tobacco Use Types Packs/Day Years Used Date Smoking Tobacco: Never Smokeless Tobacco: Never Alcohol Use Standard Drinks/Week Comments Never 0 (1 standard drink = 0.6 oz pur e alcohol) Sex and Gender Information Value Date Recorded Sex Assigned at Not on file Legal Sex Male 4:35 PM EDT Gender Identity Not on file Sexual Orientation Not on file documented as of this encounter Plan of Treatment Not on file documented as of this encounter Visit Diagnoses Not on filedocumented in this encounter Care Teams Certified Pesticide Applicator Relationship Specialty Start Date End Date Tamika Fontenot MD [address] [place] [address] PCP - General Internal Medicine 11/22/15 08/18/21 documented as of this encounter
--- OUTSIDE RECORDS SUMMARY | 2025-01-29 09:25 | XMS_ITS | Encounter Summary ---
Author Organization [employer] Address [address] [place] [address] [address] [place] [address] Care Team Providers Care Bag Tester Name Role Phone Catherine Lee MD Primary Care Provider [phone] Encounter Details Date Type Department Care Team (Latest Contact Info) Description 01/28/2025 Travel Social History Tobacco Use Types Packs/Day [...] AM EDT documented as of this encounter Functional Status * Over the past 2 weeks, how often have you been bothered by any of the following problems? Question Answer Date of Assessment Author Patient Health Questionnaire-2 Score 0 04/2024 3:10 PM Leigh Patel MA * Little interest or pleasure in doing things Answer Date of Assessment Author Not at all 01/28/2025 3:10 PM Leigh Patel MA * Feeling down, depressed, or hopeless [...] Not difficult at all 01/28/2025 3:10 PM Leigh Haque MA documented as of this encounter Plan of Treatment Not on file documented as of this encounter Visit Diagnoses Not on filedocumented in this encounter Additional Health Concerns Assessment Noted Time PHQ-9 Depression Total Score: 2 01/29/20 25 3:10 PM EST documented as of this encounter Care Teams Bag Tester Relationship Specialty Start Date End Date Catherine Lee MD [address] [place] [phone] PCP - General Family Medicine 09/23/21 documented as of this encounter
--- OUTSIDE RECORDS SUMMARY | 2025-01-29 09:25 | XMS_ITS | Clinical Summary ---
Author Organization [facility] Address [facility] [place] [address] Care Team Providers Care Rollout Manager Name Role Phone Unavailable Primary Care Provider Unavailabl e Allergies No known active allergies Medications cyclobenzaprine (Flexeril) 10 mg Tablet Take 1 tablet by mouth 3 times daily as needed for Muscle spasms. 30 tablet 11/02/2020 Active oxyCODONE-acetam inophen (Percocet) 5-325 mg TabletIndication s:Lumbar disc herniation Take 1 tablet by mouth every 8 hours as needed for Pain. 30 tablet 12/07/2020 Active Active Problems Problem Noted Date Diagnosed Date Lumbar radiculopathy 11/02/2020 Hx of decompressive lumbar laminectomy 0 Overview (10/28/2019): June 2018: L4-L5 decompressive laminectomy and discectomy (Dr. Tip Cisneros) Assessment & Plan (12/08/2019 7:51 AM EDT): As noted in HPI, history of L4-L5 decompressive laminectomy and discectomy in June 2018. Now with ongoing/chronic back pain with radicular symptoms. MRI from 10/2019 reviewed - chronic changes with question disease most severe L3-L4 and L4-L5. I have refilled diclofenac and lidocaine patches given insurance barriers filling scripts prior. I have also placed referral to pain management/spine. Discussed need to have long-term pain management regimen. If no improvement with pain mgt/spinal injections, will need to revisit spinal surgeon. Chronic postoperative pain 10/28/2019 Assessment & Plan (10/28/2019 8:20 PM EDT): Patient with history of decompressive L4-L5 laminectomy and discectomy June 2018 [facility]. Patient reports completing full course of physical [...] lower extremities originating from lumbar sacral region. Lumbar disc herniation 07/29/2018 Overview (07/29/2018): Massive disc herniation L/4-L/5 s/p laminectomy and discectomy Assessment & Plan (02/17/2020 5:03 PM EST): Patient symptoms seem to be progressively/worsening from [...] need surgical intervention in the near future. Family History Relation Status Comments Brother 1 Alive Brother 2 Alive Father Alive Mother Alive Sister Alive Social History Tobacco Use Types Packs/Day Years Used Date Smoking Tobacco: Never Smokeless Tobacco: Never Alcohol Use Standard Drinks/Week Comments Never 0 (1 standard drink = 0.6 oz pur e alcohol) Sex and Gender Information Value Date Recorded Sex Assigned at Not on file Legal Sex Male 4:35 PM EDT Gender Identity Not on file Sexual Orientation Not on file Last Filed Vital Signs Vital Sign Reading Time Taken Comments Blood Pressure 110/63 12/21/2020 1:30 PM EDT Pulse 65 12/21/2020 1:30 PM EDT Temperature 36.8 C (98.3 F) 12/21/2020 1:30 PM EDT Respiratory Rate 16 11/03/2020 6:33 AM EDT Oxygen Saturation 94% 11/03/2020 6:33 AM EDT Inhaled Oxygen Concentration - - Weight 81.6 kg (180 lb) 12/21/2020 1:30 PM EDT Height 188 cm (6' 2 ) 12/21/2020 1:30 PM EDT Body Mass Index 23.11 12/21/2020 1:30 PM EDT Plan of Treatment Health Maintenance Due Date Last Done Comments CT Colonography 1976 Colonoscopy 1976 Colorectal Cancer Screening 1976 FIT DNA 1976 FIT 1976 Sigmoidoscopy (10 year) with FIT yearly 1976 Sigmoidoscopy 1976 HIV screen 1994 Hepatitis B vaccine (0-59 yrs) and Risk (1) 12/23/1995 Tetanus/Diphtheria/Pertussis Vaccines (1 - Tdap) 12/22 Covid-19 Vaccine (1 - season) 2024 Influenza (Flu) vaccine (1 o f 1 - Influenza standard series) 10/27/2024 Lipid Screening 10/27/2024 10/28/2019 Hepatitis C Screening Completed 10/28/2019 Medical Devices Implanted Type Area Care Management Coordinator Device Identifier Shelf Expiration Date Model / Serial / Lot Cage Spinal [id number] Expandable Short Plif Ti ([id number]) ([employer]oreq) - [id number] Implanted:Qty: 1 on 11/02/2020 by Aayush Alves MD at [facility] IMPLANTS Spine Lumbar [employer] 07/09/2028 [id number] / / [id number] Graft Bone Filler 3cc Dbm Injectable Putty Bosque ([id number]) ([employer]) - [id number] Implanted:Qty: 1 on 11/02/2020 by Aayush Alves MD at [facility] IMPLANTS Spine Lumbar [employer] 10/04/2022 [id number] / [id number] / Screw Spinal Set Pedicle 5.5/6.0mm Sld Break Off ([id number]) ([employer]q) - [id number] Implanted:Qty: 6 on 11/02/2020 by Aayush Alves MD at [facility] IMPLANTS Spine Lumbar [employer] [id number] / / Screw Spinal 6.5x40mm Pedicle Sld ([id number]) ([employer]q) - [id number] Implanted:Qty: 4 on 11/02/2020 by Aayush Alves MD at [facility] IMPLANTS Spine Lumbar [employer] [id number] / / Carl Spinal 5.5x50mm Lumbar Percutaneous Cocr ([id number]) ([employer]) - [id number] Implanted:Qty: 1 on 11/02/2020 by Aayush Alves MD at [facility] IMPLANTS Spine Lumbar [employer] [id number] / / Screw Spinal 5.5x45mm Pedicle Sld ([id number]) ([employer]q) - [id number] Implanted:Qty: 2 on 11/02/2020 by Aayush Alves MD at [facility] IMPLANTS Spine Lumbar [employer] [id number] / / Carl Spinal 5.5x55mm Lumbar Percutaneous Cocr ([id number]) ([employer]q) - [id number] Implanted:Qty: 1 on 11/02/2020 by Aayush Alves MD at [facility] IMPLANTS Spine Lumbar [employer] [id number] / / Procedures Procedure Name Priority Date/Time Associated Diagnosis Comments HC VENIPUNCTURE Routine 10/28/2019 5:48 PM EDT Healthcare maintenance HC HEPATITIS C ANTIBODY Routine 10/28/2019 5:48 PM EDT Need for hepatitis C screening test from Last 3 Months or Most Recently Relevant to Health Maintenance Results * Hepatitis C Antibody (10/28/2019 5:48 PM EDT) Hepatitis C Antibody Negative Negative [facility] Blood specimen (specimen) 10/28/2019 5:48 PM EDT 10/28/2019 9:10 PM EDT Narrative Resulting Agency Comment Spec In Lab us Umang Reynaga MD CHEMISTRY ORDERABLES Final Result [facility] [place] [place] [address] * Lipid Panel (Reflex Direct LDL) (10/28/2019 5:48 PM EDT) Cholesterol, Total 202 mg/dL [facility] Comment: Lower Risk: <200 mg/dL Average Risk: 200-239 mg/dL Higher Risk: >rw=335 mg/dL Triglyceride 199 mg/dL [facility] Comment: Average Risk/Lower Risk: <150 mg/dL Borderline High Risk: 150-199 mg/dL High Risk: 200-499 mg/dL Very High Risk: >bp=848 mg/dL HDL Cholesterol 33 mg/dL [facility] Comment: Males: Higher Risk: <40 mg/dL Females: HIgher Risk: <50 mg/dL LDL Cholesterol 129 mg/dL [facility] Comment: Lowest Risk: <100 mg/dL Lower Risk: 100-129 mg/dL Borderline High Risk: 130-159 mg/dL High Risk: 160-189 mg/dL Very High Risk: >ho=345 mg/dL Cholesterol/HDL Ratio 6.1 ratio [facility] Lipid Interpretation See Note [facility] Comment: Lipid management should be guided by a patient s ASCVD risk, goals and preferences. ACC/AHA Guidelines recommend high intensity statin if clinical ASCVD or LDL greater than or equal to 190 mg/dL. http://tinyurl.com/GLT-PKP-Ihcfbvmnd Adults aged 40-75 with LDL 70-189 mg/dL should have their 10 year ASCVD risk estimated with the ACC/AHA ASCVD risk millwork estimator http://tools.acc.org/OYYMQ-Nffi-Tamycrufo/ Statin should be discussed if risk greater than or equal to 7.5% in non-diabetics. With diabetes, moderate intensity statin is recommended if risk less than 7.5%, high intensity if risk greater than or equal to 7.5%. Annual lipid monitoring on statins is not necessary. Evaluate secondary causes of Triglycerides greater than 500 mg/dL or LDL greater than 190 mg/dL: See table 6 of ACC/AHA Guideline. Lifestyle modification is a critical component of ASCVD risk reduction. Blood specimen (specimen) 10/28/2019 5:48 PM EDT 10/28/2019 9:21 PM EDT Narrative Resulting Agency Comment Spec In Lab us Umang Reynaga MD CHEMISTRY ORDERABLES Final Result [facility] [place] [address] from Last 3 Months or Most Recently Relevant to Health Maintenance Insurance [facility] * Guarantor: [id number] COMMENTS Account Type Relation to Patient Date of Phone Billing Address Workers Comp 1975 [place] AD[address]ESS: [address] [address] [facility] Advance Directives * Attempt Cardiopulmonary Resuscitation - Inpatient (Latest Code Status on File) Date Activated Date Inactivated Comments 11/02/2020 1:21 PM 11/03/2020 1:17 PM Question Answer Comments Code Status decision made by: Patient
[2025-01-29 13:59] LABS: MANUAL DIFF FLAG NO
[2025-01-29 14:04] LABS: Hematocrit 42.5 % (42.0-52.0); Hemoglobin 13.6 g/dl (14.0-18.0); Imm Gran Abs Auto 0.01 X10*3/uL (0.00-0.03); Imm Gran Pct Auto 0.2 % (0.0-0.4); Lymphocytes Absolute Auto 1.6 X10*3/uL (1.2-4.9); Mean Corpuscular HGB Conc 32.0 g/dl (31.0-36.0); Mean Corpuscular Hemoglobin 26.9 pg (27.0-33.0); Mean Corpuscular Volume 84.2 fL (80.0-98.0); NRBC Abs Auto 0.000 X10*3/uL (0.0-0.012); NRBC Pct Auto 0.0 /100WBC (0.0-0.2); Platelet Count 187 X10*3/uL (160-400); Red Blood Count 5.05 X10*6/uL (4.60-5.80); White Blood Count 5.1 X10*3/uL (4.8-10.8)
[2025-01-29 14:53] LABS: PSA,Total (Free>4and<10) 0.53 ng/mL (0.00-4.00)
[2025-01-29 14:55] LABS: Alanine Aminotransferase 19 U/L (0-40); Albumin Level 4.7 g/dL (3.5-5.0); Alkaline Phosphatase 66 U/L (39-117); Anion Gap 11 (12-20); Aspartate Amino Transferase 34 U/L (5-37); Blood Urea Nitrogen 16 mg/dL (9-16); Calcium 9.4 mg/dL (8.4-10.2); Carbon Dioxide 26 mmol/L (22-29); Chloride 108 mmol/L (96-108); Cholesterol 173 mg/dL (<200); Estimated Glomerular Filt Rate > 60; HDL Cholesterol 29 mg/dL (>40); Potassium 4.1 mmol/L (3.3-5.1); Sodium 141 mmol/L (135-145); Total Protein 7.2 g/dL (6.5-8.0); Triglycerides 161 mg/dL (<150)
== END 2025-01-29 08:40 | disposition home or self-care (01) ==
LOC: HO.CHCLDS 08:39
PROVIDERS: Visit Provider Family Medicine
DX: Z12.5 Encounter for screening for malignant neoplasm of prostate (principal); Z13.29 Encounter for screening for other suspected endocrine disorder; Z13.6 Encounter for screening for cardiovascular disorders
CPT/HCPCS: 36415; 80053; 80061; 84153; 84443; 85025